=== PATIENT | male | born 1945 | race Caucasian/White ===

== ENCOUNTER 2017-01-23 17:36 | Inpatient (IN) | payer MEDICARE, OTHER ==
[~2017-01-23] VITALS: Ht 177.8 cm; Wt 116.3 kg
[~2017-01-23 17:36] MED LIST: AMLODIPINE BESY10 MG PO; AMOXICILLIN/CL875 MG PO; BENAZEPRIL HCL/1 TAB PO; BL ASPIRIN325 MG PO; CITALOPRAM20 MG PO; CLARITIN10 M1 PO; DOXYCYCL HYC100 MG PO; FISH OIL1000 MG PO; FLUTICASONE50 MCG; GABAPENTIN100 MG PO; LIPITOR40 MG PO; MUCINEX600 MG PO; NIACIN500 M2 PO; NITROGLYCER0.4 MG SL; PRILOSEC20 MG PO
--- NOTE | 2017-01-23 18:00 | NUR ---
PT TO ROOM FOR EXAM
--- NOTE | 2017-01-23 18:14 | NUR ---
PT C/O GENERALIZED ABD PAIN SINCE TUESDAY THAT RADIATES TO BACK. NON REPRODUCABLE WITH TOUCH. HX OF PANCREATITIS & ABD HERNIA. PT TOOK A OXYCODONE AROUND NOON TODAY WHICH COMPLETELY RELEIVED PAIN. PT C/O NAUSEA BUT DENIES V/D. PT INFORMED OF INCREASED LENGTH OF STAY DUE TO CT SCAN BEING DOWN. PT AMBULATED TO BATHROOM FOR URINE SAMPLE UNASSISTED. ABD SOFT, ACTIVE BOWEL SOUNDS. CARDIAC WNL. RESP CLEAR, EVEN, UNLABORED. NEUROS WNL. NO MUSCULOSKELETAL ABNORMALITIES. BED IN LOWEST POSITION, SIDE RAILS UP, CALL FERRER WITHIN REACH. @ BEDSIDE.
--- NOTE | 2017-01-23 19:02 | NUR ---
PT RESTING IN BED. DENIES PAIN AT THIS TIME. WENT HOME TO TRANSFER INTO WARMER CLOTHES AND TAKE HER MEDICINE. BED IN LOWEST POSITION, SIDE RAILS UP, CALL FERRER WITHIN REACH. PT & JOKING WITH STAFF. PORT XR COMPLETED.
[2017-01-23 19:11] LABS: HEMATOCRIT 40.8 % (39.0-50.0); IMMATURE GRANULOCYTES 0.3 % (0.0-1.0); MEAN CELL VOLUME 90.3 fL CALC (80.0-100.0); MEAN CORPUSCULAR HGB CONC 34.3 g/L CALC (32.0-36.0); NEUT# 11.4 thou/uL (1.82-7.42); RED BLOOD COUNT 4.52 mill/uL (4.70-6.10); RED CELL DISTRI WIDTH 14.6 % (11.5-15.5)
[2017-01-23 19:12] LABS: URINE BILIRUBIN - DIPSTICK NEGATIVE (NEGATIVE); URINE BLOOD DIPSTICK SMALL (NEGATIVE); URINE CLARITY CLEAR; URINE COLOR YELLOW; URINE GLUCOSE - DIPSTICK NEGATIVE (NEGATIVE); URINE KETONE NEGATIVE (NEGATIVE); URINE LEUK ESTERASE NEGATIVE (NEGATIVE); URINE NITRITE - DIPSTICK NEGATIVE (Negative); URINE PH 5.5 (4.5-8.0); URINE PROTEIN - DIPSTICK NEGATIVE (NEG-TRACE); URINE SPECIFIC GRAVITY 1.025
[2017-01-23 19:17] LABS: ALBUMIN 4.4 g/dL (3.2-5.0); ALKALINE PHOSPHATASE 120 u/l (38-126); AMYLASE 99 u/l (30-110); ANION GAP 15 (6-22 (CALC)); BILIRUBIN, TOTAL 0.7 mg/dL (0.0-1.4); BUN 12 mg/dL (8-23); BUN/CREATININE RATIO 17 (12-20 (CALC)); CALCIUM 9.2 mg/dL (8.4-10.2); CARBON DIOXIDE 29 mmol/l (22-30); CHLORIDE 101 mmol/l (95-108); CREATININE 0.7 mg/dL (0.7-1.3); GFR > 60 ML/MIN (>=60 (CALC)); GFR FOR AFR.AMER. > 60 ML/MIN (>=60 (CALC)); GLUCOSE 110 mg/dL (82-115); LIPASE 373 u/l (23-300); POTASSIUM 3.4 mmol/l (3.5-5.1); SGOT/AST 24 u/l (19-48); SGPT/ALT 35 u/l (11-66); SODIUM 141 mmol/l (137-146); TOTAL PROTEIN 7.9 g/dL (6.3-8.2)
[2017-01-23 19:28] LABS: MYOGLOBIN 51 ng/mL (0 - 121)
[2017-01-23 19:36] LABS: URINE SQUAMOUS EPITHELIAL CELL FEW EPI/hpf (0-FEW)
--- NOTE | 2017-01-23 20:21 | NUR ---
PT SLEEPING IN BED BUT EASILY AROUSED. DISCUSSED LAB/XR RESULTS WITH PT & . PT DENIES PAIN 0/10. VS STABLE. WAITING ON CT SCAN.
--- NOTE | 2017-01-23 21:08 | NUR ---
PT STABLE IN ER BED. @ BEDSIDE. PT DENIES PAIN. WAITING FOR CT SCAN.
--- NOTE | 2017-01-23 23:28 | NUR ---
PT DENIES ABD PAIN NOR NAUSEA.WARM BLANKET PROVIDED
--- NOTE | 2017-01-23 23:40 | NUR ---
PT LEAVES VIA [facility] FOR CT EXAM IN SMILING PAINFREE STABLE CONDITION
--- NOTE | 2017-01-24 01:41 | NUR ---
REPORT RECEIVED FROM [facility], THAT CT WAS CONSISTENT WITH PANCREATITIS. RELAYED TO DR. PECK.
--- NOTE | 2017-01-24 02:18 | NUR ---
PT RETURNS FROM CT VIA [facility] IN STABLE CONDITION REPORTS SL ABD [PAIN 2 ON SCALE NO NAUSEA.DECLINED ADDITIONAL PAIN MED AT THIS TIME
--- NOTE | 2017-01-24 03:00 | NUR ---
PATIENT ARRIVED TO THE FLOOR IN STABLE CONDITION VIA WHEELCHAIR AND ACCOMPANIED BY GIUSEPPE, RN. PATIENT SETTLED TO ROOM AND ORIENTED TO ROOM CALL SYSTEM. PATIENT STATES PAIN OF 1 ON 0-10 PAIN SCALE. STARTED IV FLUIDS OF D5 NS AT 125CC/HR VIA PUMP. NO APPARENT ACUTE DISTRESS NOTED.
[2017-01-24 03:07] VITALS: BP 148/80
--- NOTE | 2017-01-24 03:08 | NUR ---
TO [facility] IN IMPROVED STABLE CONDITION
--- NOTE | 2017-01-24 07:20 | NUR ---
REPORT RECEIVED FROM ALEKSEY VERDUZCO. PT SUPINE IN BED. REPORTS "PAIN IS COMING BACK." MODERATE PAIN TO ABDOMIN. NO NAUSEA. REPORTING OF CONCERNS ENCOURAGED. PT SET UP FOR SHOWER AT THIS TIME. PLAN OF CARE DISCUSSED. NPO STATUS REVIEWED. CALL LIGHT REVIEWED AND IN REACH. PT STATES UNDERSTANDING.
[2017-01-24 07:23] VITALS: BP 135/68
--- NOTE | 2017-01-24 08:29 | NUR ---
PT REPORTS MODERATE ABD PAIN. DR. REDD NOTIFIED AND DILAUDID IV X 1 DOSE ORDERED. MED ADMINISTERED. PT REPORTS RELIEF WITHIN MINUTES. CLEAR LIQUID DIET STARTED AT THIS TIME. WILL CONTINUE TO MONITOR.
[2017-01-24 09:01] LABS: HEMATOCRIT 41.1 % (39.0-50.0); HEMOGLOBIN 13.7 g/dl (14.0-18.0); IMMATURE GRANULOCYTES 0.4 % (0.0-1.0); MEAN CELL VOLUME 91.3 fL CALC (80.0-100.0); MEAN CORPUSCULAR HGB 30.4 pG CALC (26.0-32.0); MEAN CORPUSCULAR HGB CONC 33.3 g/L CALC (32.0-36.0); NEUT# 9.25 thou/uL (1.82-7.42); RED BLOOD COUNT 4.5 mill/uL (4.70-6.10); RED CELL DISTRI WIDTH 14.7 % (11.5-15.5)
[2017-01-24 09:12] LABS: ANION GAP 12 (6-22 (CALC)); BUN 10 mg/dL (8-23); BUN/CREATININE RATIO 15 (12-20 (CALC)); CALCIUM 8.8 mg/dL (8.4-10.2); CALCULATED LDLCHOLESTEROL 64 mg/dL (62-129 (CALC)); CARBON DIOXIDE 27 mmol/l (22-30); CHLORIDE 106 mmol/l (95-108); CHOLESTEROL HDL RATIO 2.4 (<4.4 (CALC)); CREATININE 0.7 mg/dL (0.7-1.3); GFR > 60 ML/MIN (>=60 (CALC)); GFR FOR AFR.AMER. > 60 ML/MIN (>=60 (CALC)); GLUCOSE 117 mg/dL (82-115); HDL CHOLESTEROL 56 mg/dL (>=40); POTASSIUM 3.5 mmol/l (3.5-5.1); SODIUM 142 mmol/l (137-146); TOTAL CHOLESTEROL 132 mg/dl (0-199); TOTAL TRIGLYCERIDES 63 mg/dl (30-149); VLDL CHOLESTROL 13 mg/dl (0-38 (CALC))
[2017-01-24] MEDS ORDERED: [UNRECOGNIZED DRUG - OTHER] PO (10:21)
[2017-01-24] MEDS ORDERED: HYDROCHLOROT12.5 MG PO (10:22)
[2017-01-24] MEDS ORDERED: NORVASC PO (10:23)
[2017-01-24] MEDS ORDERED: CITALOPRAM40 MG PO (10:24)
[2017-01-24] MEDS ORDERED: FUROSEMIDE20 MG PO (10:26)
--- NOTE | 2017-01-24 10:37 | NUR ---
DR. REDD IN TO SEE PT. PLAN OF CARE UPDATED. PT STATES UNDERSTANDING.
[2017-01-24] MEDS ORDERED: WARFARIN5 MG PO (10:57)
[2017-01-24] MEDS ORDERED: LEVOTHYROXIN100 MC1 PO (10:58)
[2017-01-24 11:02] LABS: INTERNATIONAL NORMALIZED RATIO 3.3 RATIO (0.7-1.3); PROTHROMBIN TIME 37.5 SECONDS (9.0-12.5)
--- NOTE | 2017-01-24 13:29 | NUR ---
PT REPORTS MODERATE ABDOMINAL PAIN, 6 ON PAIN SCALE. LORTAB PO ADMINISTERED. ZOFRAN GIVEN TO PREVENT NAUSEA PER PT REQUEST. WILL MONITOR FOR EFFECTIVENESS.
--- NOTE | 2017-01-24 15:27 | NUR ---
Visited pt during rounds. He states she is feeling good but a little groggy from the pain meds. Is aware of increase in dose of levothyroxine and that warfarin is being held today due to supratherapeutic INR (INR today was 3.3, states his goal is 2.5-3.0). Advised that INR will be rechecked in the morning and warfarin will be restarted as appropriate. Pt reported that he is expecting to be discharged tomorrow. No questions or concerns regarding medications or therapeutic plan at this time.
[2017-01-24 16:25] VITALS: BP 140/71
--- NOTE | 2017-01-24 16:45 | NUR ---
PT SITTING ON SIDE OF BED. VISITOR PRESENT. DENIES PAIN. REPORTING OF CONCERNS ENCOURAGED. CALL LIGHT WITHIN REACH.
--- NOTE | 2017-01-24 18:27 | NUR ---
PT AND FAMILY MEMBERS EDUCATED ON PANCREATITIS DISEASE PROCESS AND TREATMENT PLAN. UNDERSTANDING REPORTED.
--- NOTE | 2017-01-24 19:21 | NUR ---
PATIENT RESTING IN BED AT THIS TIME WITH HOB ELEVATED-AWAKE ALERT AND ORIENTEDX3. PATIENT WITH NO COMPLAINTS AT THIS TIME-STATES THAT PO MEDS EARLIER WERE EFFECTIVE. PATIENT WITH IV SITE TO RIGHT WRIST INTACT WITH IVF NS PATENT AND INFUSING AT 150CC/HR. SITE APPEARS HEALTHY AT THIS TIME. ABD IS LARGE WITH HYPOACTIVE BS-STATES THAT HE IS PASSING FLATUS. SAFETY PRECAUTIONS REINFORCED. CALL LIGHT IN REACH. WILL CONT TO MONITOR.
[2017-01-24 19:24] VITALS: BP 131/66
--- NOTE | 2017-01-24 21:45 | NUR ---
PATIENT RESTING IN BED AT THIS TIME-PATIENT C/O ACHY ABD PAIN-MEDICATED WITH LORTAB 7.5MG PO ORDERED FOR PAIN. CALL LIGHT IN REACH. WILL CONT TO MONITOR.
--- NOTE | 2017-01-24 23:56 | NUR ---
PATIENT APPEARS SLEEPING AT THIS TIME POSITIONED ON SIDE AND EYES CLOSED. IVF PATENT AND INFUSING ORDERED. CALL LIGHT IN REACH. WILL CONT TO MONITOR.
[2017-01-25 04:17] VITALS: BP 145/78
--- NOTE | 2017-01-25 04:24 | NUR ---
PATIENT STATES RELIEF FROM PAIN MEDS. URINAL EMPTIED FOR 950CC OF NICOLE URINE. IVF PATENT AND INFUSING AT 150CC/HR-IV SITE REMAINS HEALTHY. CALL LIGHT IN REACH. WILL CONT TO MONITOR.
[2017-01-25 04:49] LABS: HEMATOCRIT 41.1 % (39.0-50.0); HEMOGLOBIN 13.5 g/dl (14.0-18.0); IMMATURE GRANULOCYTES 0.2 % (0.0-1.0); MEAN CELL VOLUME 91.9 fL CALC (80.0-100.0); MEAN CORPUSCULAR HGB 30.2 pG CALC (26.0-32.0); MEAN CORPUSCULAR HGB CONC 32.8 g/L CALC (32.0-36.0); RED BLOOD COUNT 4.47 mill/uL (4.70-6.10); RED CELL DISTRI WIDTH 14.5 % (11.5-15.5)
[2017-01-25 05:08] LABS: ANION GAP 14 (6-22 (CALC)); BUN 9 mg/dL (8-23); BUN/CREATININE RATIO 14 (12-20 (CALC)); CALCIUM 8.7 mg/dL (8.4-10.2); CARBON DIOXIDE 26 mmol/l (22-30); CHLORIDE 109 mmol/l (95-108); CREATININE 0.6 mg/dL (0.7-1.3); GFR > 60 ML/MIN (>=60 (CALC)); GFR FOR AFR.AMER. > 60 ML/MIN (>=60 (CALC)); GLUCOSE 94 mg/dL (82-115); INTERNATIONAL NORMALIZED RATIO 2.8 RATIO (0.7-1.3); POTASSIUM 4.1 mmol/l (3.5-5.1); PROTHROMBIN TIME 32.3 SECONDS (9.0-12.5); SODIUM 145 mmol/l (137-146)
--- NOTE | 2017-01-25 06:07 | NUR ---
PATIENT RESTING IN BED AT THIS TIME. MEDICATED WITH SYNTHROID ORDERED. CONT TO VOID QS CLEAR YELLOW URINE IN BR. NO COMPLAINTS AT THIS TIME. CALL LIGHT IN REACH. WILL CONT TO MONITOR.
--- NOTE | 2017-01-25 07:00 | NUR ---
RECEIVED BEDSIDE REPORT FROM DARRELL RYDER. AMBULATED TO SHOWER WITH STEADY GAIT. RESPS EVEN AND UNLABORED ON ROOM AIR. #20 RW INFUSING WITHOUT DIFFICULTY, SITE APPEARS HEALTHY. DENIES PAIN OR DISCOMFORT. PLAN OF CARE DISCUSSED. SAFETY PRECAUTIONS REINFORCED. BED IN LOWEST POSITION WITH WHEELS LOCKED. CALL LIGHT WITHIN REACH. ENCOURAGED PT TO CALL FOR ANY NEEDS.
[2017-01-25 07:51] VITALS: BP 110/61
--- NOTE | 2017-01-25 08:00 | NUR ---
TOLERATING FULL LIQUID DIET WITHOUT C/O NAUSEA OR ABD PAIN.
--- NOTE | 2017-01-25 10:15 | NUR ---
DR GHOSH IN WITH PT, NEW ORDERS RECEIVED.
[2017-01-25] MEDS ORDERED: LORTAB 5/3255 MG PO (11:33)
--- NOTE | 2017-01-25 12:10 | NUR ---
Discharge instructions given. Patient verbalizes understanding of same. Discharged in stable condition via Wheelchair to Home with spouse. All belongings sent with pt.
== END 2017-01-25 12:12 | disposition home or self-care (01) | DRG 440 ==
LOC: ED 17:36 → ED-I 01-24 02:08 → ED 01-24 02:37 → MS2 01-24 02:38
PROVIDERS: Emergency Medicine; Nurse Practitioner Family; ADMIT Internal Medicine; ATTEND Internal Medicine
DX: K85.90 Acute pancreatitis without necrosis or infection, unspecified (principal); C73 Malignant neoplasm of thyroid gland; E78.5 Hyperlipidemia, unspecified; I10 Essential (primary) hypertension; F32.9 Major depressive disorder, single episode, unspecified; I25.10 Atherosclerotic heart disease of native coronary artery without angina pectoris; M19.90 Unspecified osteoarthritis, unspecified site; E89.0 Postprocedural hypothyroidism; E87.6 Hypokalemia; R79.1 Abnormal coagulation profile; K43.9 Ventral hernia without obstruction or gangrene; T45.515A Adverse effect of anticoagulants, initial encounter; K22.70 Barrett's esophagus without dysplasia; Z87.891 Personal history of nicotine dependence; Z95.5 Presence of coronary angioplasty implant and graft; Z86.711 Personal history of pulmonary embolism; Z85.46 Personal history of malignant neoplasm of prostate
CPT/HCPCS: S0164

== ENCOUNTER → 2018-04-17 | Outpatient (REF) | payer MEDICARE, OTHER ==
[~2018-04-17] MED LIST changes: +CITALOPRAM40 MG PO; +FUROSEMIDE20 MG PO; +HYDROCHLOROT12.5 MG PO; +LEVOTHYROXIN100 MC1 PO; +LORTAB 5/3255 MG PO; +NORVASC PO; +WARFARIN5 MG PO; +[UNRECOGNIZED DRUG - OTHER] PO
[2018-04-17 11:19] LABS: HEMATOCRIT 39.7 % (39.0-50.0); HEMOGLOBIN 13.2 g/dl (14.0-18.0); MEAN CELL VOLUME 91.9 fL CALC (80.0-100.0); MEAN CORPUSCULAR HGB 30.6 pG CALC (26.0-32.0); MEAN CORPUSCULAR HGB CONC 33.2 g/L CALC (32.0-36.0); RED BLOOD COUNT 4.32 mill/uL (4.70-6.10); RED CELL DISTRI WIDTH 14.2 % (11.5-15.5)
[2018-04-17 13:27] LABS: ALKALINE PHOSPHATASE 117 u/l (38-126); ANION GAP 14 (6-22 (CALC)); BILIRUBIN, TOTAL 0.7 mg/dL (0.0-1.4); BUN 17 mg/dL (8-23); BUN/CREATININE RATIO 22 (12-20 (CALC)); CARBON DIOXIDE 28 mmol/l (22-30); CHLORIDE 101 mmol/l (95-108); CREATININE 0.8 mg/dL (0.7-1.3); GFR > 60 ML/MIN (>=60 (CALC)); GFR FOR AFR.AMER. > 60 ML/MIN (>=60 (CALC)); POTASSIUM 3.7 mmol/l (3.5-5.1); SGOT/AST 28 u/l (19-48); SODIUM 139 mmol/l (137-146); TOTAL PROTEIN 6.7 g/dL (6.3-8.2)
== END | disposition home or self-care (01) ==
LOC: LAB 10:00
PROVIDERS: ATTEND Internal Medicine
DX: C73 Malignant neoplasm of thyroid gland (principal); G47.33 Obstructive sleep apnea (adult) (pediatric); I10 Essential (primary) hypertension; K22.70 Barrett's esophagus without dysplasia